=== PATIENT | female | born 1980 | race Caucasian/White ===

== ENCOUNTER 2017-09-04 15:31 | Emergency (ER) | payer OTHER ==
--- NOTE | 2017-09-04 16:17 | ED Physician Documentation ---
Lower Extremity Injury - HPI Stated Complaint: burn right foot Chief Complaint: Lower Extremity Injury Additional Information: dropped hot fried chicken and fried chicken grease on top of Left foot. 6 days ago. now starting to hurt more and starting to smell. 2nd degree burn dorsum of foot an medial over arch and onto sole of foot. bulla formation, with broken bulla. also between 1st, 2nd, 3rd toe webs. erythema under bulla skin . Onset: days ago Where: home Severity: moderate Context: burn Modifying Factors:: pain on movement - ROS CONST: no problems CVS/RESP: none GI/: denies: nausea, vomiting MS/SKIN/LYMPH: none NEURO: denies: headache - PAST HX Past History: none Allergies/Adverse Reactions: Allergies Allergy/AdvReac Type Severity Reaction Status Date / Time No Known Allergies Allergy Verified 09/04/17 16:02 - SOCIAL HX Smoking History: cigarettes Alcohol Use: none Drug Use: none - FAMILY HX Family History: none - VITAL SIGNS Vital Signs: Vital Signs Temp Pulse Resp BP Pulse Ox 37.1 F L 75 18 145/72 99 09/04/17 15:35 09/04/17 15:35 09/04/17 15:35 09/04/17 15:35 09/04/17 15:35 - REVIEWED ASSESSMENTS Nursing Assessment Reviewed: Yes Vitals Reviewed: Yes Progress - Results/Orders Results/Orders: i discussed the need for surgical debridement of the devitalized dermis overlying the bullous burn on her left foot. I'll start her on antibiotics. Lower Extremities Injury Phy - Physical Exam General Appearance: no acute distress, alert Hips: bilateral hip: non-tender, normal inspection Legs: bilateral: normal inspection Knees: bilateral: normal inspection Ankle: bilateral: normal inspection Foot: left foot: infection (2nd degree burn as decribed), pain (1-2 % body surface area burn, 14x9cm ) Gait: limited by pain Neuro/Vascular/Tendon: no vascular compromise Head/ENT: nml inspection Neck/Back: nml inspection Resp/CVS: chest non-tender, no resp. distress Abdomen: non-tender Discharge Clincal Impression: Cellulitis of foot, left Burn of foot, left, second degree Qualifiers: Encounter type: initial encounter Qualified Code(s): T25.222A - Burn of second degree of left foot, initial encounter Referrals: Shayna Guzman MD [Primary Care Provider] - 2 Days Condition: Stable Disposition: 01 HOME, SELF-CARE Decision to Admit: NO Date of Decison to Admit: 09/04/17 Decision Time: 16:29
[2017-09-04] MEDS ORDERED: cefTRIAXone SODIUM 1 GM VIAL IM ONE (16:26)
[2017-09-04] MEDS ORDERED: HYDROcodone /APAP 10/325 1 EACH TABLET PO ONE (16:27)
[2017-09-04] MEDS ORDERED: Lidocaine 1% 5ml(IM or SUTURE)(PAIN CLINIC) ONE (16:31)
[2017-09-04] MEDS ORDERED: SILVER SULFADIAZINE 20GM TUBE TP ONE (16:33)
[2017-09-04 17:02] VITALS: BP 132/74
== END 2017-09-04 16:59 | disposition home or self-care (01) ==
LOC: ED 15:31
DX: T25.222A Burn of second degree of left foot, initial encounter (principal); L03.116 Cellulitis of left lower limb; X58.XXXA Exposure to other specified factors, initial encounter; Y93.9 Activity, unspecified; Y99.9 Unspecified external cause status
CPT/HCPCS: 96372; 99283; J0696